=== PATIENT | male | born 1960 | race Caucasian/White ===

== ENCOUNTER 2020-05-17 08:43 | Outpatient (CLI) | payer BC, SELFPAY ==
--- NOTE | 2020-05-17 10:30 | NEURO_ITS ---
Patient Number: [id number] Impression: # Complains of pain and numbness of right foot around 4th and 5th toes. # Right peroneal nerve terminal latency is more than right tibial nerve terminal latency. # Normal needle/EMG exam including Abd Hallicus. # # Normal F-waves. # Clinical correlation recommended; at present study is normal. Nerve Conduction Studies Anti Sensory Summary Table Stim Site NR Peak (ms) P-T Amp (?V) Site1 Site2 Delta-P (ms) Dist (cm) Dionicio (m/s) Right Sup Fibular Anti Sensory (Ant Lat Mall) 14 cm 3.2 5.6 14 cm Ant Lat Mall 3.2 16.0 50 Right Sural Anti Sensory (Lat Mall) Calf 3.1 3.5 Calf Lat Mall 3.1 16.0 52 Motor Summary Table Stim Site NR Onset (ms) O-P Amp (mV) Site1 Site2 Delta-0 (ms) Dist (cm) Dionicio (m/s) Right Peroneal Motor (Vastus Med) Ankle 6.1 2.2 Popit Ankle 8.9 39.0 44 Popit 15.0 1.9 Right Tibial Motor (Abd Willson Brev) Ankle 5.2 2.1 Knee Ankle 10.3 48.0 47 Knee 15.5 1.9 F Wave Studies NR F-Lat (ms) L-R F-Lat (ms) Right Peroneal (Mrkrs) (EDB) 57.17 Right Tibial (Mrkrs) (Abd Hallucis) 56.42 EMG Side Muscle Nerve Root Ins Act Fibs Amp Dur Recrt Comment Right AntTibialis Dp Br Fibular L4-5 Nml Nml Nml Nml Nml Right Gastroc Tibial S1-2 Nml Nml Nml Nml Nml Right Fibularis Long Sup Br Fibular L5-S1 Nml Nml Nml Nml Nml Right Flex Dig Long Tibial L5-S2 Nml Nml Nml Nml Nml Right Ext Dig Brev Dp Br Fibular L5, S1 Nml Nml Nml Nml Nml Right QuadratusFem QuadFemoris L4-5, S1 Nml Nml Nml Nml Nml Right AbdHallucis MedPlantar S1-2 Nml Nml Nml Nml Nml MTDD
== END 2020-05-17 08:44 | disposition home or self-care (01) ==
PROVIDERS: PCP Nurse Practitioner; Visit Provider Nurse Practitioner
DX: M79.2 Neuralgia and neuritis, unspecified (principal)
CPT/HCPCS: 95886; 95908

== ENCOUNTER → 2020-12-13 00:18 | Outpatient (CLI) | payer BC, SELFPAY ==
[2020-12-13 20:45] LABS: SARS-CoV-2 RNA PCR Negative
== END ==
PROVIDERS: PCP Nurse Practitioner; Visit Provider Internal Medicine Gastroenterology
DX: Z01.812 Encounter for preprocedural laboratory examination (principal); Z20.822 Contact with and (suspected) exposure to COVID-19
CPT/HCPCS: C9803; U0003; U0005

== ENCOUNTER 2020-12-16 00:06 | Day surgery (SDC) | payer BC, SELFPAY ==
[2020-09-28 13:50] VITALS: BMI 31.9
--- NOTE | 2020-10-12 10:03 | PC.NURSE ---
pt called to confirm new dates and times and review prior health history and medications from 09/28/2020. no changes and times and dates confirmed. all questions answered.
[2020-12-06 13:47] VITALS: BMI 31.6
[2020-12-16 06:25] VITALS: BP 126/88; PULSE 74; RESP 18; TEMP 36.5; O2SAT 98
[2020-12-16] MEDS: LACTATED RINGERS 1,000 ML 150 ML IV CONT (06:33)
--- NOTE | 2020-12-16 07:09 | WPDANESEPPF ---
Anes - Initial Pre Proc Eval Procedure: Operation Date: 12/16/20 07:30 Proposed Procedures p Screening Colonoscopy - Bienvenido Calderon MD Date/Time: 12/16/20 07:09 Surgeon: Bienvenido Calderon MD Pre Op Diagnosis: Neoplasm Screening Patient Data Age: 60 Gender: M Height: 6 ft Weight: 109 kg Last Vital Signs Temp 97.7 F 12/16/20 06:25 Pulse 74 12/16/20 06:25 Resp 18 12/16/20 06:25 BP 126/88 12/16/20 06:25 Pulse Ox 98 12/16/20 06:25 Allergies Allergy/AdvReac Type Severity Reaction Status Date / Time No Known Allergies Allergy Unknown Verified 12/06/20 13:46 Home Medications Medication Instructions Recorded Confirmed Type atorvastatin 40 mg tablet 40 mg PO DAILY #90 tablet 07/16/19 10/12/20 Rx esomeprazole magnesium 40 mg 40 mg PO DAILY #90 cap 07/16/19 10/12/20 Rx capsule,delayed release aspirin 325 mg tablet,delayed 325 mg PO DAILY 10/06/19 10/12/20 History release calcium polycarbophil 625 mg tablet 1,250 mg PO DAILY 10/06/19 10/12/20 History cholecalciferol (vitamin D3) 50 50 mcg PO DAILY cap 10/06/19 10/12/20 History mcg (2,000 unit) capsule fluocinonide 0.05 % topical 1 applic TOPICAL DAILY PRN ml 10/06/19 10/12/20 History solution pseudoephedrine HCl 60 mg tablet 60 mg PO Q4-6H PRN #20 tablet 10/06/19 10/12/20 Rx Patient hx anesthesia problems: none Family hx anesthesia problems: none PMFSH Past Medical History Medical History (Updated 10/06/19 @ 12:23 by Drake Jacobs MD) Acute cholecystitis GERD (gastroesophageal reflux disease) Hx-TIA (transient ischemic attack) Hypercholesterolemia Pseudogout of foot left foot Tendon injury left index finger-repair Surgical History Surgical History History of appendectomy History of carpal tunnel release History of cholecystectomy Hx of tonsillectomy Family History Family History Grandparent Carcinoma of colon Other Cerebrovascular accident Diabetes mellitus Family history of arthritis Hypertension Social History Social History Smoking status: Former smoker Tobacco type: cigarettes Second hand tobacco smoke exposure: No Smoking end date: 09/02/00 Alcohol intake: current Drinks per week: 30 Alcohol use details: BEER Substance use: never Substance use type: does not use Living arrangements: alone Gender identity (if verbalized by the patient): Male Spiritual care concerns: No Anes - Eval Final PreProcedure Day of Procedure 12/16/20 07:09 Patient weight: obese Heart: regular rate and rhythm Airway: Mallampati scale class II Neurological: alert and oriented Last oral intake: >/= 8 hours ASA classification: III Emergent: no Anesthetic plan: proceed Anesthesia type and monitoring: general GIVS and standard monitoring Informed Consent: The patient's anesthetic plan and its attendant risks and benefits were discussed with the patient/family/POA. Questions were solicited and answers provided to the satisfaction of the patient/family/POA.
--- NOTE | 2020-12-16 07:31 | PM.HPGS ---
History of Present Illness History of Present Illness Consent: Risks, benefits, and alternatives have been discussed and questions answered. Patient agrees to proceed with procedure. Chief complaint: Neoplasm Screening Narrative: Hawk Walters is a 60 year old male here for screening colonoscopy, last one 2012 Review of Systems Constitutional: Constitutional: Denies headache(s) and Denies weakness Eyes: Eyes: Denies blurry vision ENT: Reports Normal hearing present, Denies headache(s) and Denies neck pain Cardiovascular: Cardiovascular: Denies chest pain and Denies dyspnea Respiratory: Respiratory: Denies dyspnea Gastrointestinal: Gastrointestinal: Reports no additional gastrointestinal complaints Genitourinary: Genitourinary: Denies dysuria Musculoskeletal: Musculoskeletal: Denies neck pain Integumentary/Breasts: Skin/Breast: Denies dry skin Neurologic: Reports Normal hearing present, Denies headache(s) and Denies weakness Psychiatric: Psychiatric: Denies anxiety Endocrine: Endocrine: Denies change in body appearance Hematologic/Lymphatic: Hematologic/Lymphatic: Denies easy bleeding Allergic/Immunologic: Allergic/Immunologic: Denies urticaria PMFSH Past Medical History Medical History (Updated 12/16/20 @ 07:32 by Bienvenido Calderon MD) Acute cholecystitis Colon cancer screening GERD (gastroesophageal reflux disease) Hx-TIA (transient ischemic attack) Hypercholesterolemia Pseudogout of foot left foot Tendon injury left index finger-repair Surgical History Surgical History History of appendectomy History of carpal tunnel release History of cholecystectomy Hx of tonsillectomy Family History Family History Grandparent Carcinoma of colon Other Cerebrovascular accident Diabetes mellitus Family history of arthritis Hypertension Social History Social History Smoking status: Former smoker Tobacco type: cigarettes Second hand tobacco smoke exposure: No Smoking end date: 09/02/00 Alcohol intake: current Drinks per week: 30 Alcohol use details: BEER Substance use: never Substance use type: does not use Living arrangements: alone Gender identity (if verbalized by the patient): Male Spiritual care concerns: No Meds Home Medications and Allergies Home Medications Medication Instructions Recorded Confirmed Type atorvastatin 40 mg tablet 40 mg PO DAILY #90 tablet 07/16/19 10/12/20 Rx esomeprazole magnesium 40 mg 40 mg PO DAILY #90 cap 07/16/19 10/12/20 Rx capsule,delayed release aspirin 325 mg tablet,delayed 325 mg PO DAILY 10/06/19 10/12/20 History release calcium polycarbophil 625 mg tablet 1,250 mg PO DAILY 10/06/19 10/12/20 History cholecalciferol (vitamin D3) 50 50 mcg PO DAILY cap 10/06/19 10/12/20 History mcg (2,000 unit) capsule fluocinonide 0.05 % topical 1 applic TOPICAL DAILY PRN ml 10/06/19 10/12/20 History solution pseudoephedrine HCl 60 mg tablet 60 mg PO Q4-6H PRN #20 tablet 10/06/19 10/12/20 Rx Allergies Allergy/AdvReac Type Severity Reaction Status Date / Time No Known Allergies Allergy Unknown Verified 12/06/20 13:46 Vital Signs Vital Signs - 24 hr 12/16/20 06:25 Temperature 97.7 F Pulse Rate 74 Respiratory Rate 18 Blood Pressure 126/88 Pulse Oximetry 98 Exam Const: General: comfortable and no acute distress HENMT: General nose exam: Normal nares present Eyes: General: appearance normal, both eyes and all related structures Neck: Neck: no JVD Resp: Auscultation: clear to auscultation bilaterally Cardio: Rate: regular rate Rhythm: regular rhythm GI: Inspection: non-distended GI Palp: Yes Soft to palpation Skin: General skin exam: normal color Neuro: General: gait normal Speech: normal speech Extrem: General: n
[2020-12-16 07:57] VITALS: BP 111/69; PULSE 61; RESP 18; O2SAT 98
[2020-12-16 08:07] VITALS: BP 110/73; PULSE 56; RESP 16; O2SAT 98
[2020-12-16 08:17] VITALS: BP 115/79; PULSE 58; RESP 20; O2SAT 99
== END 2020-12-16 08:30 | disposition home or self-care (01) ==
PROVIDERS: PCP Nurse Practitioner; Visit Provider Internal Medicine Gastroenterology
PROC: 0DJD8ZZ Inspection of Lower Intestinal Tract, Via Natural or Artificial Opening Endoscopic (ICD-10-PCS; CPT 45378; principal; 2020-12-16 07:30)
DX: Z12.11 Encounter for screening for malignant neoplasm of colon (principal); K63.5 Polyp of colon; K57.30 Diverticulosis of large intestine without perforation or abscess without bleeding; K21.9 Gastro-esophageal reflux disease without esophagitis; E78.00 Pure hypercholesterolemia, unspecified; Z79.82 Long term (current) use of aspirin; Z86.73 Personal history of transient ischemic attack (TIA), and cerebral infarction without residual deficits; Z87.891 Personal history of nicotine dependence; E66.9 Obesity, unspecified; Z68.32 Body mass index [BMI] 32.0-32.9, adult
CPT/HCPCS: 45385; 45380; 88305; J2704; J7120

== ENCOUNTER 2022-05-15 12:36 | Emergency (ER) | payer BC, SELFPAY ==
[2022-05-15 13:24] VITALS: BP 140/91; PULSE 86; RESP 18; TEMP 37.1; O2SAT 99
[2022-05-15 14:21] VITALS: BP 158/96; PULSE 90; RESP 18; O2SAT 98
[2022-05-15] MEDS: TETANUS,DIPHTHERIA,AC PERTUSSIS ADULT (0.5 ML) BOOSTRIX IM (14:46)
--- NOTE | 2022-05-15 14:48 | ED.ANIMALBIT ---
HPI - Animal Bite General Chief Complaint: Animal Bite Stated Complaint: Dog bite Time Seen by Provider: 05/15/22 14:22 History of Present Illness HPI narrative: 61-year-old male presents the emergency room for evaluation of a dog bite to his right forearm. Patient states the dog was unknown to him but the air traffic coordinator was present. Patient states that he bent down to allow the dog to smell when the air traffic coordinator came from behind the dog to grab it by the collar, scaring the dog and the dog bit the patient in the right forearm. Patient states the air traffic coordinator says that the dog's immunizations are up-to-date. Related Data Home Medications Medication Instructions Recorded Confirmed aspirin 325 mg tablet,delayed 325 mg PO DAILY 10/06/19 03/13/22 release (Aspir-Denice) calcium polycarbophil 625 mg 1,250 mg PO DAILY 10/06/19 03/13/22 tablet (Fiber (calcium polycarbophil)) cholecalciferol (vitamin D3) 50 50 mcg PO DAILY 10/06/19 03/13/22 mcg (2,000 unit) capsule fluocinonide 0.05 % topical 1 applic topical DAILY PRN Itching 10/06/19 03/13/22 solution Allergies Allergy/AdvReac Type Severity Reaction Status Date / Time No Known Allergies Allergy Unknown Verified 05/15/22 14:22 Review of Systems Review of Systems: CONSTITUTIONAL: Denies fever, chills, or sweats. EYES: Denies visual changes, redness, or discharge. ENT: Denies rhinorrhea, congestion, sore throat, or otalgia. CARDIOVASCULAR: Denies chest pain, palpitations, or edema. RESPIRATORY: Denies cough or dyspnea. GASTROINTESTINAL: Denies abdominal pain, nausea, vomiting, or diarrhea. GENITOURINARY: Denies dysuria or hematuria. SKIN: Puncture wounds to right forearm MUSCULOSKELETAL: Denies back pain, joint pain, or myalgia. NEUROLOGIC: Denies headache, numbness, dizziness, or weakness. PSYCHIATRIC: Denies anxiety or depression. 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 Plantar fasciitis of right foot Pseudogout of foot left foot Tendon injury left index finger-repair Surgical History Surgical History History of appendectomy History of carpal tunnel release History of cholecystectomy Hx of tonsillectomy Family History Family History Grandparent Carcinoma of colon Other Cerebrovascular accident Diabetes mellitus Family history of arthritis Hypertension Social History Social History Smoking status: Former smoker Tobacco type: cigarettes Second hand tobacco smoke exposure: No Smoking end date: 09/02/00 Alcohol intake: current Drinks per week: 30 Alcohol use details: BEER Substance use: never Substance use type: does not use Gender identity (if verbalized by the patient): Male Spiritual care concerns: No Exam Narrative: GENERAL: Well-appearing, well-nourished, no physical limitations, and in no acute distress. HEAD: Normocephalic, atraumatic. EYES: Conjunctivae normal, PERRLA and EOMI. CHEST: Clear to auscultation. No respiratory distress. No wheezes rales or rhonchi. No tenderness. HEART: Regular rate and rhythm. No murmur heard. Normal peripheral pulses. EXTREMITIES: Normal range of motion. No edema. No clubbing or cyanosis SKIN: 3 puncture wounds to the posterior surface of the right forearm NEURO: No focal deficits. Alert and oriented x3. MAEW. CN's II-XI intact bilaterally, normal gait PSYCH: Cooperative. Normal mood and affect. Course Vital Signs Vital signs: Vital Signs Temperature 37.1 C 05/15/22 13:24 Pulse Rate 86 05/15/22 13:24 Respiratory Rate 18 05/15/22 13:24 Blood Pressure 140/91 H 05/15/22 13:24
== END 2022-05-15 15:22 | disposition home or self-care (01) ==
PROVIDERS: Emergency Provider Nurse Practitioner Family; PCP Family Medicine
DX: S51.851A Open bite of right forearm, initial encounter (principal); W54.0XXA Bitten by dog, initial encounter; E78.00 Pure hypercholesterolemia, unspecified; K21.9 Gastro-esophageal reflux disease without esophagitis; Z86.73 Personal history of transient ischemic attack (TIA), and cerebral infarction without residual deficits; Z79.82 Long term (current) use of aspirin; Z87.891 Personal history of nicotine dependence; Z23 Encounter for immunization
CPT/HCPCS: 90471; 90715; 99283

== ENCOUNTER 2025-02-26 10:49 | Outpatient (CLI) | payer OTHER, SELFPAY ==
--- NOTE | ~2025-02-26 | MR_ITS ---
MRI of the right knee Clinical history: Pain Technique: Coronal proton density and proton density-weighted images, sagittal proton-density and T2 fat-sat images, and axial proton-density fat-saturated images were acquired. Findings: Anterior and posterior cruciate ligaments are intact. Medial collateral ligament and the la teral collateral ligament complex are intact. Popliteus tendon is intact. There is extensive complex tearing of the posterior horn and body of the medial meniscus, partial ext rusion into the medial gutter of the body segment. Lateral meniscus is intact. There is mild chondromalacia along the medial patellar facet. Femoral trochlear cartilage and shows f ocal high-grade lesion at the inferior central aspect. There is moderate chondral thinning of the med ial joint line. Extensor mechanism is intact. Minimal joint effusion present. Minimal Romo's cyst. Impression: Extensive complex tearing of the posterior horn and body of the medial meniscus, as detailed above. Mild to moderate degenerative change of the knee, as above. Reviewed, dictated and finalized at location . Impression: Extensive complex tearing of the posterior horn and body of the medial meniscus , as detailed above. Mild to moderate degenerative change of the knee, as above.
== END 2025-02-26 10:50 | disposition home or self-care (01) ==
DX: M17.11 Unilateral primary osteoarthritis, right knee (principal)
CPT/HCPCS: 73721